=== PATIENT | male | born 1955 | race Caucasian/White ===

== ENCOUNTER 2020-05-23 14:35 | Emergency (ER) | payer MEDICARE ==
[~2020-05-23] VITALS: Ht 168.9 cm; Wt 90.3 kg
[~2020-05-23 14:35] MED LIST: HYDROCODON-ACE1 EA10 PO; MOTRIN IB200 MG PO; OXYCODON-ACETA1 EAC2 PO; PERCOCET 7.5-31 EACH PO
[2020-05-23] MEDS ORDERED: METFORMIN HCL500 M1 PO (14:50)
[2020-05-23] MEDS ORDERED: OMEPRAZOLE20 MG PO (14:50)
[2020-05-23] MEDS ORDERED: ROSUVASTATIN CA20 MG PO (14:51)
[2020-05-23] MEDS ORDERED: LISINOPRIL-HCT1 EACH PO (14:51)
== END 2020-05-23 15:26 | disposition home or self-care (01) ==
LOC: ED 14:35
DX: S01.112A Laceration without foreign body of left eyelid and periocular area, initial encounter (principal); S01.81XA Laceration without foreign body of other part of head, initial encounter; W22.8XXA Striking against or struck by other objects, initial encounter; Z79.84 Long term (current) use of oral hypoglycemic drugs; Z79.899 Other long term (current) drug therapy
CPT/HCPCS: 12011; 90471; 90662; 99282-25

== ENCOUNTER 2021-08-08 12:01 | Day surgery (SDC) | payer MEDICARE ==
[~2021-08-08] VITALS: Ht 167.6 cm; Wt 88.6 kg
[~2021-08-08 12:01] MED LIST changes: +LISINOPRIL-HCT1 EACH PO; +METFORMIN HCL500 M1 PO; +OMEPRAZOLE20 MG PO; +ROSUVASTATIN CA20 MG PO
[2021-08-08] MEDS ORDERED: ASPIRIN81 MG PO (12:22)
--- NOTE | 2021-08-08 14:51 | NUR ---
08/08/21 1451 Daisy Garcia 1445 PT ARRIVED TO PACU, VSS. PT AWAKE AND TALKING TO RN. PT DENEIS PAIN AND NAUSEA.
--- NOTE | 2021-08-09 16:55 | PATH ---
[facility] [address] [place], [place] [address] Signed SPECIMEN(S): A DUODENAL BIOPSY SPECIMEN(S): B ANTRUM/PYLORUS BIOPSY SPECIMEN(S): C DISTAL ESOPHAGEAL BIOPSY SPECIMEN(S): D ESOPHAGEAL BIOPSY AT 24 CM DANIELLE'S MUCOSA SPECIMEN SOURCE: A. DUODENAL BIOPSY B. ANTRUM/PYLORUS BIOPSY C. DISTAL ESOPHAGEAL BIOPSY D. ESOPHAGEAL BIOPSY AT 24 CM DANIELLE'S MUCOSA CLINICAL HISTORY: History of Danielle's esophagus with esophagitis. Esophagogastroduodenoscopy. FINAL PATHOLOGIC DIAGNOSIS: A. Duodenum, biopsy: - Mild chronic duodenitis. - Negative for increased intraepithelial lymphocytes or villous blunting. - Negative for dysplasia or malignancy. B. Stomach, antrum/pylorus, biopsy: - Antral mucosa with chronic, inactive gastritis. - Negative for Helicobacter organisms (HE and IHC). - Negative for dysplasia or malignancy. C. Esophagus, distal, biopsy: - Squamocolumnar junctional mucosa with intestinal metaplasia, see Comment. - Negative for dysplasia or malignancy. D. Esophagus, 24 cm "Danielle's mucosa", biopsy: - Squamocolumnar junctional mucosa with focal intestinal metaplasia, see Comment. - Negative for dysplasia or malignancy. COMMENT: Regarding specimens C and D: The findings are compatible with Danielle's esophagus. NAL:cml:C2NR MICROSCOPIC EXAMINATION: Histologic sections of all submitted blocks are examined by light microscopy. These findings, together with the gross examination, support the pathologic diagnosis. Regarding specimen B: An H. pylori immunohistochemical stain (with PATIENT NAME: DIETER MENJIVAR PATHOLOGY DATE OF : 55 REPORT #: [id number] PHYSICIAN: MARLI BLANDON PCP: MARLYN GARDNER MD REPORT IS CONFIDENTIAL AND NOT TO BE RELEASED WITHOUT AUTHORIZATION [facility] [address] [place], [place] [address] Signed appropriately staining controls) is negative for Helicobacter organisms. GROSS DESCRIPTION: Four specimens are received in four containers, labeled "DL." A. The specimen, labeled "DL, duodenal biopsy," is received in formalin and consists of one aguilera soft tissue fragments that measure 0.3 cm in greatest dimension. The specimen is entirely submitted in cassette (A1). B. The specimen, labeled "DL, antrum biopsy," is received in formalin and consists of two aguilera soft tissue fragments that measure 0.1-0.3 cm in greatest dimension. The specimen is entirely submitted in cassette (B1). C. The specimen, labeled "DL, distal esophagus biopsy," is received in formalin and consists of five aguilera soft tissue fragments that measure 0.1-0.2 cm in greatest dimension. The specimen is entirely submitted in cassette (C1). D. The specimen, labeled "DL, Danielle's mucosa esophagus biopsy at 24 cm," is received in formalin and consists of two aguilera soft tissue fragments that measure 0.3 cm in greatest dimension. The specimen is entirely submitted in cassette (D1). JS (under the direct supervision of a pathologist) The Gross Description was prepared using a voice recognition system. The report was reviewed for accuracy; however, sound-alike word errors, addition and/or deletions may occur. If there is any question about this report, please contact Client Services. ADDITIONAL NOTES: Immunohistochemical and/or in situ hybridization studies were performed on this case with the appropriate positive controls that react as expected. This test was developed and its performance characteristics determined by [facility]. It has not been cleared or approved by the U.S. Food and Drug Administration. The FDA has determined that such clearance or approval is not necessary. This test is used for clinical purposes. It should not be regarded as investigational or for research. [facility] is certified under the Clinical Laboratory Improvement Amendments of 1988 (CLIA) as qualified to perform high complexity clinical laboratory testing. This assay has not been validated for specimens that have been decalcified. The technical component was performed by [facility], [address] [place] [id number] (Sales Development Executive: Pallavi Cueto MD; CLIA# [id number]). PATIENT NAME: DIETER MENJIVAR PATHOLOGY DATE OF : 55 REPORT #: [id number] PHYSICIAN: MARLI BLANDON PCP: MARLYN GARDNER MD REPORT IS CONFIDENTIAL AND NOT TO BE RELEASED WITHOUT AUTHORIZATION [facility] [address] [place], [place] [address] Signed Professional interpretation [facility], [address] [address] (CLIA# [id number]). PERFORMING LABORATORY: The technical component was performed by [facility], [address] [place] [id number] (Sales Development Executive: Pallavi Cueto MD; CLIA# [id number]). Professional interpretation was performed by [facility], [facility], [address] [address] (CLIA# [id number]). Diagnostician: Kalpana Lafleur MD Pathologist Electronically Signed 08/09/2021 Copies: ~ PATIENT NAME: DIETER MENJIVAR PATHOLOGY DATE OF : 55 REPORT #: [id number] PHYSICIAN: MARLI PATHOLOGY PCP: MARLYN GARDNER MD REPORT IS CONFIDENTIAL AND NOT TO BE RELEASED WITHOUT AUTHORIZATION
--- NOTE | 2021-08-10 15:47 | OR ---
[facility] [address] [place], [place] [address] Signed DATE OF OPERATION: 08/08/2021 SURGEON: Gladis Chew MD PREOPERATIVE DIAGNOSIS: Known history of Silverio's esophagus and history of severe esophagitis. POSTOPERATIVE DIAGNOSIS: Silverio's esophagus at 24 cm, minimal inflammation distal esophagus and hiatal hernia. PROCEDURE: Esophagogastroduodenoscopy with biopsy. ANESTHESIA: Intravenous sedation; fentanyl 100 mcg and Versed 5 mg. INDICATION: This 66-year-old white man is a patient Dr. Marlyn Barth and has known to have Silverio's esophagus from the past at approximately 25 cm. He has no symptoms of dysphagia, hematemesis, or other particular issues. He is only episodically taking PPI medication as had been prescribed for him. He is here for surveillance upper endoscopy. He understands the risks of bleeding, infection, and perforation. FINDINGS: He had Silverio's esophagus once again at 24 cm. There was no evidence of stricture or neoplasm proper. The distal esophagus had mild inflammation but no Silverio's in that actual area. There was a hiatal hernia. The remaining stomach and duodenum were reasonably normal. CLOtest was negative 15 minutes post procedure. DESCRIPTION OF PROCEDURE: The patient was brought to the endoscopy suite and placed in lateral decubitus position after undergoing topical lidocaine spray hypopharyngeal anesthesia. Full cardiopulmonary monitoring, intravenous sedation was induced to point of slurred speech and nystagmus. A bite block was placed. An Olympus video upper endoscope was passed in the hypopharynx. The vocal cords were normal. Scope was advanced to the esophagus, passed to the stomach. The stomach was insufflated with air. Rugal folds were normal, normal-appearing pylorus. The scope was passed through into the duodenum, which was reasonably normal. Biopsies were obtained. The scope was withdrawn and biopsies then taken of the antrum for both VALDO and pathologic testing. Retroflexed view was undertaken showing a hiatal hernia. The scope was withdrawn and the distal esophagus Electronically Signed By: GLADIS CHEW MD 08/10/21 1547 PATIENT NAME: DIETER MENJIVAR OPERATIVE REPORT DATE OF : 55 REPORT #: [id number] PHYSICIAN: GLADIS CHEW MD PCP: MARLYN BARTH MD REPORT IS CONFIDENTIAL AND NOT TO BE RELEASED WITHOUT AUTHORIZATION [facility] [address] [place], [place] [address] Signed evaluated and had a somewhat inflamed but nonacutely inflamed appearance. There was no neoplasm, no stricture, no ulceration. Biopsies were obtained. The scope was withdrawn to approximately 24 cm, but quite obvious Silverio's epithelium was noted. This was multiply biopsied circumferentially. The scope was withdrawn and vocal cords once again visualized as normal. The patient was taken to the recovery room in good condition. CONCLUDING DIAGNOSIS: Silverio's esophagus at 24 cm. PLAN: There is no evidence of dysplasia or neoplasm based on gross examination, but biopsies are pending. I would recommend continued use of PPI medication given his Silverio's esophagus and its location. I would from his medication at all. We will review this with the patient. Would recommend repeat upper endoscopy no later than three years depending on the pathologic findings now and I would like to see the patient back in the office in 4 to 6 weeks. MD ERNIE Small/MODL /[id number] cc: Marlyn Barth MD Copies: MARLYN BARTH MD ~ Electronically Signed By: GLADIS CHEW MD 08/10/21 1547 PATIENT NAME: DIETER MENJIVAR OPERATIVE REPORT DATE OF : 55 REPORT #: [id number] PHYSICIAN: GLADIS CHEW MD PCP: MARLYN BARTH MD REPORT IS CONFIDENTIAL AND NOT TO BE RELEASED WITHOUT AUTHORIZATION
== END 2021-08-08 15:25 | disposition home or self-care (01) ==
LOC: DS 12:01 → OPS 12:01
PROVIDERS: ATTEND Surgery
PROC: 0DB78ZX Excision of Stomach, Pylorus, Via Natural or Artificial Opening Endoscopic, Diagnostic (ICD-10-PCS; 2021-08-08)
PROC: 0DB38ZX Excision of Lower Esophagus, Via Natural or Artificial Opening Endoscopic, Diagnostic (ICD-10-PCS; 2021-08-08)
PROC: 0DB58ZX Excision of Esophagus, Via Natural or Artificial Opening Endoscopic, Diagnostic (ICD-10-PCS; 2021-08-08)
PROC: 0DB98ZX Excision of Duodenum, Via Natural or Artificial Opening Endoscopic, Diagnostic (ICD-10-PCS; principal; 2021-08-08 13:00)
DX: K22.70 Barrett's esophagus without dysplasia (principal); K29.80 Duodenitis without bleeding; K20.90 Esophagitis, unspecified without bleeding; I10 Essential (primary) hypertension; E78.5 Hyperlipidemia, unspecified; K44.9 Diaphragmatic hernia without obstruction or gangrene; Z20.822 Contact with and (suspected) exposure to COVID-19
CPT/HCPCS: 99153; G0500; J0690; J2250; J3010; J7121

== ENCOUNTER 2021-10-03 07:05 | Day surgery (SDC) | payer MEDICARE ==
[~2021-10-03] VITALS: Ht 167.6 cm; Wt 86.4 kg
[~2021-10-03 07:05] MED LIST changes: +ASPIRIN81 MG PO
[2021-10-03] MEDS ORDERED: TRULICITY0.75 MG/0. IM (10:03)
[2021-10-03] MEDS ORDERED: TRULICITY1.5 MG/0.5 SUB-Q (10:04)
[2021-10-03] MEDS ORDERED: ACETAMINOPHEN500 MG PO (13:02)
[2021-10-03] MEDS ORDERED: OXYCODON-ACETA1 EAC2 PO (13:02)
--- NOTE | 2021-10-06 16:30 | OR ---
[facility] [address] [place], [place] [address] Signed DATE OF OPERATION: 10/03/2021 SURGEON: Gladis Chew MD PREOPERATIVE DIAGNOSIS: Recurrent right inguinal hernia (2nd recurrence). POSTOPERATIVE DIAGNOSIS: Recurrent right inguinal hernia (2nd recurrence), indirect defect. PROCEDURES: 1. Repair of recurrent right inguinal hernia. 2. Implantation of Prolene mesh underlay technique at internal ring. ANESTHESIA: General LMA, Tyler Arjun, SURGICAL ASSISTANT CERTIFIED and local 10 mL of 0.25% Marcaine with epinephrine. INDICATION: This 66-year-old white man is well known to me from the past. He underwent a recurrent right inguinal hernia repair by me in 2015 at which time implantation of Prolene mesh was undertaken. His previous repair through a much higher (cephalad) incision by Dr. Barby Reyes several years ago was undertaken. He has recently had some minor discomfort in the right groin and examination does show what appears to be a fascial defect near the cord. He is admitted at this time to undergo repair of a doubly recurrent right inguinal hernia. He understands the risk of bleeding, infection, testicular loss, and other unforeseen complications and wished to proceed. FINDINGS: The offending defect was juxtaposed to the cord at the internal ring. Mesh that had been implanted in an underlay technique had good repair of the floor otherwise. The herniated tissue was that of the properitoneal fat. This was replaced into the properitoneal space. Options of management include simple reapproximation of the internal ring, but given the fibrosis and so forth from prior mesh, it is deemed more advisable to implant the small amount of mesh in an underlay technique which was accomplished with good results. Avoidance of excessive tightening at the internal ring was also undertaken to avoid testicular vascular compromise. DESCRIPTION OF PROCEDURE: The patient was brought to the operating room, given a general anesthetic. Preoperative antibiotic Ancef was given. Sequential compression device stockings were used. The Electronically Signed By: GLADIS CHEW MD 10/06/21 1630 PATIENT NAME: DIETER MENJIVAR OPERATIVE REPORT DATE OF : 55 REPORT #: [id number] PHYSICIAN: GLADIS CHEW MD PCP: MARLYN BARTH MD REPORT IS CONFIDENTIAL AND NOT TO BE RELEASED WITHOUT AUTHORIZATION [facility] [address] [place], [place] [address] Signed lower abdomen was clipped and prepared with chlorhexidine solution and draped sterilely. There were two incisions to choose from one much higher in the abdomen, the other the one I had made in 2015. The latter was used. An incision was made directly in the previous incision. Dissection was carried through the subcutaneous tissue. External oblique was incised and rather attenuated. It was opened and the underlying cord structures were well identified. Using blunt dissection, the cord was mobilized from the floor. The floor itself was impressively intact with excellent fibrosis from prior implantation of the mesh. In the medial aspect of the cord at what would be considered the internal ring separation of the dense fascial fibers was noted. Associated with this was an indirect defect with protruding properitoneal fatty tissue. This was freed circumferentially including away from the cord itself and replaced in the properitoneal space without problem. Simple reapproximation of the internal ring by plicating the tendon of the transversus abdominis to the inguinal ligament was a consideration. However, given the dense fibrosis, it is probable that tension on such a closure would be excessive and likely result in recurrence. On that basis, a somewhat circular piece of Prolene mesh was cut to secure in an underlay technique inferiorly, medially and laterally with the tails of the graft taken around the cord laterally. This was secured with interrupted 2-0 Prolene. At conclusion, the reapproximation of the fascial edges was undertaken with two separate 2-0 Prolene as well. There appeared to be good repair of the defect and without compromise to cord structures themselves. A 10 mL of 0.25% Marcaine with epinephrine was injected locally. The cord was replaced in the canal. The external oblique fascia was attenuated enough that simple reapproximation of Ana Maria's fascia over the cord structures was appropriate. The skin was closed with running subcuticular 3-0 Vicryl. Steri-Strips were applied as was an Acticoat dressing. The patient tolerated the procedure well. BLOOD LOSS: Minimal. COMPLICATIONS: None. MD ERNIE Small/CHASL /[id number] Electronically Signed By: GLADIS CHEW MD 10/06/21 1630 PATIENT NAME: DIETER MENJIVAR OPERATIVE REPORT DATE OF : 55 REPORT #: [id number] PHYSICIAN: GLADIS CHEW MD PCP: MARLYN BARTH MD REPORT IS CONFIDENTIAL AND NOT TO BE RELEASED WITHOUT AUTHORIZATION [address] [address] Signed cc: Marlyn Barth MD Copies: MARLYN BARTH MD ~ Electronically Signed By: GLADIS CHEW MD 10/06/21 1630 PATIENT NAME: DIETER MENJIVAR CHRISTI OPERATIVE REPORT DATE OF : 55 REPORT #: [id number] PHYSICIAN: GLADIS CHEW MD PCP: MARLYN BARTH MD REPORT IS CONFIDENTIAL AND NOT TO BE RELEASED WITHOUT AUTHORIZATION
== END 2021-10-03 15:10 | disposition home or self-care (01) ==
LOC: DS 07:05
PROVIDERS: ATTEND Surgery
PROC: 0YU50JZ Supplement Right Inguinal Region with Synthetic Substitute, Open Approach (ICD-10-PCS; principal; 2021-10-03 10:30)
DX: K40.91 Unilateral inguinal hernia, without obstruction or gangrene, recurrent (principal); K21.9 Gastro-esophageal reflux disease without esophagitis; K22.70 Barrett's esophagus without dysplasia; E78.5 Hyperlipidemia, unspecified; I10 Essential (primary) hypertension; E11.9 Type 2 diabetes mellitus without complications; Z86.010 Personal history of colon polyps; Z79.899 Other long term (current) drug therapy
CPT/HCPCS: C1781; J0690; J1100; J1885; J2001; J2405; J2704; J3010; J7121

== ENCOUNTER 2021-10-15 20:38 | Emergency (ER) | payer MEDICARE ==
[~2021-10-15] VITALS: Ht 167.6 cm; Wt 88.0 kg
[~2021-10-15 20:38] MED LIST changes: +ACETAMINOPHEN500 MG PO; +TRULICITY0.75 MG/0. IM; +TRULICITY1.5 MG/0.5 SUB-Q
--- OUTSIDE RECORDS SUMMARY | 2021-10-15 20:40 | XMS ---
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 EJt VISIT COUNT (12 MO.) 1 SUNNY [place] TOTAL 1 NOTE: Visits indicate total known visits. ED/UCC VISIT TRACKING (12 MO.) 10/15/2021 20:39 SUNNY Diaz [place] TYPE: Emergency COMPLAINT: - FINGER LACERATION INPATIENT VISIT TRACKING (12 MO.) No inpatient visits to display in this time frame [email or web address]
[2021-10-16] MEDS ORDERED: CEPHALEXIN500 MG PO (03:01)
[2021-10-16] MEDS ORDERED: COL-RITE250 MG PO (03:08)
[2021-10-16] MEDS ORDERED: HYDROCODON-ACE1 EA10 PO (03:08)
== END 2021-10-16 04:10 | disposition home or self-care (01) ==
LOC: ED 20:38
DX: S62.631B Displaced fracture of distal phalanx of left index finger, initial encounter for open fracture (principal); R73.03 Prediabetes; Z79.84 Long term (current) use of oral hypoglycemic drugs; Z79.899 Other long term (current) drug therapy; Z79.82 Long term (current) use of aspirin; Z23 Encounter for immunization; W31.9XXA Contact with unspecified machinery, initial encounter
CPT/HCPCS: 73140; 90471; 90714; 96374; 99283-25; J0690

== ENCOUNTER 2022-01-16 13:03 | Day surgery (SDC) | payer MEDICARE ==
[~2022-01-16] VITALS: Ht 167.6 cm; Wt 86.4 kg
[~2022-01-16 13:03] MED LIST changes: +CEPHALEXIN500 MG PO; +COL-RITE250 MG PO
--- NOTE | 2022-01-16 16:00 | NUR ---
01/16/22 1600 Lyn Beth 1559 PATIENT IN PACU. PATIENT IS AWAKE AND ORIENTED. PATIENT IS ON 3 LITERS OF OXYGEN VIA NASAL CANNULA. BREATHING EQUAL AND UNLABORED. DENIES ANY PAIN OR NAUSEA. PATIENT EDUCATED ON PASSING GAS. 1600 PATIENT IS AWAKE AND ORIENTED. PATIENT IS STILL ON 3 LITERS VIA NASAL CANNULA. OXYGEN SATURATIONS MAINTAIN ABOVE 90%. BREATHING EQUAL AND UNLABORED. DENIES ANY PAIN OR NAUSEA. PATIENT IVF INFUSING.
--- NOTE | 2022-01-17 14:15 | OR ---
[facility] [address] [place], [place] [address] Signed DATE OF OPERATION: 01/16/2022 SURGEON: Gladis Chew MD PREOPERATIVE DIAGNOSIS: History of polyps (serrated adenoma in 2012, tubular adenoma in 2018). POSTOPERATIVE DIAGNOSES: 1. Sigmoid and left-sided diverticulosis. 2. Probable small polyp at 60 cm (excised). PROCEDURE: Total colonoscopy to cecum with cold morcellation polypectomy x1. ANESTHESIA: Intravenous sedation, fentanyl 150 mcg and Versed 5 mg. INDICATION: This 66-year-old white man, who is a patient of Dr. Barth and is well known to me from the past. He underwent colonoscopy in 2011, which showed a serrated adenoma, which was excised and a tubulovillous adenoma also excised. In 2018, he had excision of a tubular adenoma at 25 cm. He is symptom free currently and is here for followup colonoscopy on the basis of his prior history of polyps. He understands the risks of bleeding, infection, perforation related to colonoscopy and wished to proceed. FINDINGS: The prep was good. Complete colonoscopy was undertaken of the cecum. A numerous diverticula of the sigmoid and left colon. There was one small lesion at 60 cm, most likely a polyp, which was excised. The remaining colon was otherwise normal. PROCEDURE IN DETAIL: The patient was brought to the endoscopy suite and placed in the lateral decubitus position given intravenous sedation a point of slurred speech and nystagmus. Digital rectal examination was normal. An Olympus video colonoscope was passed in the rectum and manipulated throughout the colon noting numerous diverticula of the sigmoid and left colon. The scope was ultimately passed to the cecum. The ileocecal valve and the appendiceal orifice were normal. Scope was withdrawn from that point and examination throughout showed no sign of abnormality until 60 cm from the anal verge, where a small polyp (most likely) was Electronically Signed By: GLADIS CHEW MD 01/17/22 1415 PATIENT NAME: DIETER MENJIVAR OPERATIVE REPORT DATE OF : 55 REPORT #: [id number] PHYSICIAN: GLADIS CHEW MD PCP: MARLYN BARTH MD REPORT IS CONFIDENTIAL AND NOT TO BE RELEASED WITHOUT AUTHORIZATION [facility] [address] [place], [place] [address] Signed noted. This was excised with cold morcellation technique. Further withdrawal showed numerous diverticula. Retroflexed view of the rectum was normal. Scope was removed and the patient was taken to the recovery room in good condition. CONCLUDING DIAGNOSES: 1. Diverticulosis. 2. Probable small polyp. PLAN: Recommend repeat colonoscopy in 5 years based on his prior history, sooner if symptoms should develop. We would recommend high-fiber diet otherwise. MD ERNIE Small/MODL /[id number] cc: Dr. Barth Copies: ~ Electronically Signed By: GLADIS CHEW MD 01/17/22 1415 PATIENT NAME: DIETER MENJIVAR OPERATIVE REPORT DATE OF : 55 REPORT #: [id number] PHYSICIAN: GLADIS CHEW MD PCP: MARLYN BARTH MD REPORT IS CONFIDENTIAL AND NOT TO BE RELEASED WITHOUT AUTHORIZATION
== END 2022-01-16 16:34 | disposition home or self-care (01) ==
LOC: OPS 13:03 → DS 13:06 → OPS 14:00
PROVIDERS: ATTEND Surgery
PROC: 0DBE8ZZ Excision of Large Intestine, Via Natural or Artificial Opening Endoscopic (ICD-10-PCS; principal; 2022-01-16 14:00)
DX: Z12.11 Encounter for screening for malignant neoplasm of colon (principal); D12.4 Benign neoplasm of descending colon; E11.42 Type 2 diabetes mellitus with diabetic polyneuropathy; K40.91 Unilateral inguinal hernia, without obstruction or gangrene, recurrent; K57.30 Diverticulosis of large intestine without perforation or abscess without bleeding; I10 Essential (primary) hypertension; E78.5 Hyperlipidemia, unspecified; K21.9 Gastro-esophageal reflux disease without esophagitis; Z79.84 Long term (current) use of oral hypoglycemic drugs
CPT/HCPCS: 99153; G0500; J2250; J3010; J7121